=== PATIENT | male | born 1980 | race Caucasian/White ===

== ENCOUNTER → 2020-04-07 | Emergency (ER) | payer OTHER ==
[~2020-04-07] VITALS: Ht 195.6 cm; Wt 145.1 kg
[~2020-04-07] MED LIST: EYE ALLERGY REL15 M1 OP
== END | disposition home or self-care (01) ==
LOC: ER 06:42
DX: T52.0X1A Toxic effect of petroleum products, accidental (unintentional), initial encounter (principal); T26.62XA Corrosion of cornea and conjunctival sac, left eye, initial encounter; Y92.89 Other specified places as the place of occurrence of the external cause